=== PATIENT | female | born 1980 ===

== ENCOUNTER → 2023-07-05 | Day surgery (SDC) | payer OTHER ==
[2023-06-30 14:51] LABS: HEMATOCRIT 39.9 % (36.0-45.00); HEMOGLOBIN 13.3 g/dL (12.0-15.00); MEAN CELL VOLUME 87.5 fL (80.00-100.00); MEAN CORPUSCULAR HEMOGLOBIN 29.1 pg (27.00-32.0); MEAN CORPUSCULAR HGB CONC 33.3 g/dl (32.0-36.0); PLATELET COUNT 317 K/uL (150-450); RED BLOOD COUNT 4.55 M/uL (4.00-6.00); RED CELL DISTRIBUTION WIDTH 15.2 % (11.5-14.5)
[2023-06-30 15:04] LABS: URINE APPEARANCE Clear; URINE BILIRRUBIN Negative (NEGATIVE); URINE BLOOD Large; URINE COLOR Yellow; URINE GLUCOSE Negative (NEGATIVE); URINE LEUKOCYTE Negative; URINE NITRATE Negative; URINE PROTEIN Trace (NEGATIVE); URINE UROBILINOGEN 0.2 E.U./dl
[2023-06-30 15:07] LABS: URINE BACTERIA 522.8 uL (0.0-1933); URINE EPITHELIAL CELLS 30.2 uL (0.0-38.8); URINE RBC 111.6 uL (0.0-20.8); URINE WBC 4.9 uL (0.0-23.2)
[2023-06-30 15:23] LABS: ALBUMIN 3.5 gm/dL (3.4-5.0); ALKALINE PHOSPHATASE 79 U/L (50-136); ALT/SGPT 28 U/L (12-78); ANION GAP 6 (10.0-20.0); AST/SGOT 16 U/L (15-37); BILIRUBIN TOTAL 0.39 mg/dL (0.3-1.2); BLOOD UREA NITROGEN 11 mg/dL (7-18); BUN CREA RATIO 17 (7.0-25.0); CALCIUM 8.6 mg/dL (8.5-10.1); CARBON DIOXIDE 32 mEq/L (21-32); CHLORIDE 106 mmol/L (98-107); CREATININE SERUM 0.66 mg/dL (0.55-1.02); GFR 97.29; GLOBULINA 3.9 G/DL (2.4-3.5); GLUCOSE FASTING 86 mg/dL (65-100); OSMOLALITY SERUM 278 MOSM/KG (275-295); POTASSIUM 3.88 mEq/L (3.5-5.1); SODIUM 140 mmol/L (136-145); TOTAL PROTEIN 7.4 gm/dL (6.4-8.2)
[2023-06-30 15:37] LABS: INR 0.96; PROTHROMBIN TIME 10.1 SECONDS (9.0-11.5)
[2023-06-30 15:51] LABS: HCG QUANTITATIVE < 1 mUI/mL (1-3)
[~2023-07-05] VITALS: Ht 160 cm; Wt 97.1 kg
[~2023-07-05] MED LIST: FOLIC PO; IRON PO; ZESTRIL5 MG PO
== END | disposition home or self-care (01) ==
LOC: ADM 06-30 12:00 → CIR.AMB 07:00
PROVIDERS: ATTEND Obstetrics & Gynecology Obstetrics
DX: N93.8 Other specified abnormal uterine and vaginal bleeding (principal); N88.8 Other specified noninflammatory disorders of cervix uteri; Z20.822 Contact with and (suspected) exposure to COVID-19

== ENCOUNTER 2025-01-19 08:00 | Outpatient (CLI) | payer OTHER ==
[~2025-01-19] VITALS: Ht 160 cm; Wt 93.9 kg
[2025-01-19 11:16] VITALS: BP 150/89
[2025-01-19 11:21] LABS: HEMATOCRIT 37.3 % (36.0-45.00); HEMOGLOBIN 12.1 g/dL (12.0-15.00); MEAN CORPUSCULAR HEMOGLOBIN 27.3 pg (27.00-32.0); MEAN CORPUSCULAR HGB CONC 32.6 g/dl (32.0-36.0); PLATELET COUNT 296 K/uL (150-450); RED BLOOD COUNT 4.44 M/uL (4.00-6.00)
[2025-01-19 11:24] LABS: RED CELL DISTRIBUTION WIDTH 21.2 % (11.5-14.5)
[2025-01-19 11:31] LABS: URINE APPEARANCE Clear; URINE BILIRRUBIN Negative (NEGATIVE); URINE BLOOD Negative; URINE COLOR Yellow; URINE GLUCOSE Negative (NEGATIVE); URINE KETONE Trace (NEGATIVE); URINE LEUKOCYTE Negative; URINE NITRATE Negative; URINE PROTEIN Trace (NEGATIVE)
[2025-01-19 11:32] LABS: URINE BACTERIA 605.7 uL (0.0-1933); URINE EPITHELIAL CELLS 27.3 uL (0.0-38.8); URINE RBC 2.9 uL (0.0-20.8)
[2025-01-19 11:42] LABS: URINE CAST 0.73 uL (0.0-1.40)
[2025-01-19 12:01] LABS: ALBUMIN 3.5 gm/dL (3.4-5.0); BILIRUBIN TOTAL 0.53 mg/dL (0.3-1.2); CALCIUM 9.1 mg/dL (8.5-10.1); CREATININE SERUM 0.59 mg/dL (0.55-1.02); GFR 110.22; GLOBULINA 3.9 G/DL (2.4-3.5); POTASSIUM 4.18 mEq/L (3.5-5.1); TOTAL PROTEIN 7.4 gm/dL (6.4-8.2)
[2025-01-19 15:13] LABS: INR 0.97; PROTHROMBIN TIME 10.6 SECONDS (9.0-11.5)
== END 2025-01-19 08:01 | disposition home or self-care (01) ==
LOC: RAD 08:00 → OB/GYN 01-26 09:50 → EDSTATUS 01-26 12:30
PROVIDERS: ATTEND Obstetrics & Gynecology Obstetrics
DX: N93.9 Abnormal uterine and vaginal bleeding, unspecified (principal)

== ENCOUNTER 2025-02-20 07:30 | Inpatient (IN) | payer OTHER ==
[~2025-02-20] VITALS: Ht 175.3 cm; Wt 98.0 kg
[2025-02-20 08:20] VITALS: BP 140/87
[2025-02-20 08:37] LABS: BASO % 0.8 % (0.1-1.2); EOS # 0.25 (0.04-0.54); EOS % 3.3 % (0.7-7.0); HEMATOCRIT 35.6 % (34.1-44.9); HEMOGLOBIN 11.3 g/dL (11.2-15.7); LYMPH # 1.49 (1.18-3.74); LYMPH % 19.7 % (19.3-53.1); MONO # 0.57 (0.24-0.82); MONO % 7.5 % (4.7-12.5); NEUT # 5.17 (1.56-6.13); NEUT % 68.3 % (34.0-71.1); PLATELET COUNT 308 K/uL (163-369); RED BLOOD COUNT 4.04 M/uL (3.93-5.22); RED CELL DISTRIBUTION WIDTH 16.5 % (11.6-14.4)
[2025-02-20 08:47] LABS: URINE APPEARANCE Clear; URINE BILIRRUBIN Negative (NEGATIVE); URINE BLOOD Negative; URINE COLOR Yellow; URINE GLUCOSE Negative (NEGATIVE); URINE KETONE Negative (NEGATIVE); URINE LEUKOCYTE Negative; URINE NITRATE Negative; URINE PROTEIN Negative (NEGATIVE)
[2025-02-20 08:54] LABS: URINE BACTERIA 406.2 uL (0.0-1933); URINE EPITHELIAL CELLS 11.5 uL (0.0-38.8); URINE WBC 3.6 uL (0.0-23.2)
[2025-02-20 09:31] LABS: INR 0.96; PARTIAL THROMBOPLASTIN TIME 27.1 SECONDS (22.0-34.0); PROTHROMBIN TIME 10.5 SECONDS (9.0-11.5)
[2025-02-20 09:51] LABS: URINE CAST 0.73 uL (0.0-1.40); URINE RBC 1.4 uL (0.0-20.8)
[2025-02-20 12:43] LABS: ALBUMIN 3.3 gm/dL (3.4-5.0); ALKALINE PHOSPHATASE 78 U/L (50-136); ALT/SGPT 19 U/L (12-78); ANION GAP 11 (10.0-20.0); AST/SGOT 13 U/L (15-37); BLOOD UREA NITROGEN 9 mg/dL (7-18); BUN CREA RATIO 15 (7.0-25.0); CALCIUM 8.2 mg/dL (8.5-10.1); CARBON DIOXIDE 30 mEq/L (21-32); CHLORIDE 106 mmol/L (98-107); GFR 107.62; GLOBULINA 3.7 G/DL (2.4-3.5); GLUCOSE FASTING 91 mg/dL (65-100); OSMOLALITY SERUM 283 MOSM/KG (275-295); POTASSIUM 3.67 mEq/L (3.5-5.1); SODIUM 143 mmol/L (136-145)
[2025-02-20 12:44] LABS: HCG QUANTITATIVE < 1 mUI/mL (1-3)
[2025-03-12] MEDS ORDERED: CEFOXITIN SODIUM 2,000 MG VIAL IV ONE (14:45)
[2025-03-12] MEDS ORDERED: POVIDONE-IODINE 118 ML BOTT TOP ONE (17:30)
[2025-03-12] MEDS ORDERED: MORPHINE SULFATE 4 MG/ML VIAL IV SCH (21:00)
[2025-03-12] MEDS ORDERED: MORPHINE SULFATE 4 MG/ML VIAL IV ONE ×2 (21:05→23:00)
[2025-03-13 02:10] VITALS: BP 127/83
[2025-03-13 06:50] LABS: BASO % 0.2 % (0.1-1.2); HEMATOCRIT 35.6 % (34.1-44.9); HEMOGLOBIN 11.3 g/dL (11.2-15.7); LYMPH # 0.86 (1.18-3.74); LYMPH % 5.3 % (19.3-53.1); MEAN CORPUSCULAR HEMOGLOBIN 28.1 pg (25.6-32.2); MONO # 0.67 (0.24-0.82); MONO % 4.1 % (4.7-12.5); NEUT # 14.52 (1.56-6.13); PLATELET COUNT 343 K/uL (163-369); RED BLOOD COUNT 4.02 M/uL (3.93-5.22); RED CELL DISTRIBUTION WIDTH 14.4 % (11.6-14.4)
[2025-03-13] MEDS ORDERED: OxyCODONE HCL 5 MG TABLET (ROXICODONE) PO SCH (09:00)
[2025-03-13 09:06] VITALS: BP 138/84
[2025-03-13 14:03] VITALS: BP 137/87
[2025-03-13 15:39] VITALS: BP 116/80
[2025-03-14] VITALS: BP 141/86
[2025-03-14 08:23] VITALS: BP 110/78
[2025-03-14 16:23] VITALS: BP 140/80
[2025-03-14] MEDS ORDERED: SIMETHICONE 125 MG CAPSULE PO SCH (18:57)
[2025-03-15 01:23] VITALS: BP 125/77
[2025-03-15 08:00] VITALS: BP 111/77
== END 2025-03-15 16:33 | disposition home or self-care (01) | DRG 743 ==
LOC: SURH 02-26 07:30 → O/R 03-12 14:11 → OB/GYN 03-12 20:56
PROVIDERS: ADMIT Obstetrics & Gynecology Obstetrics; ATTEND Obstetrics & Gynecology Obstetrics
PROC: 0UT70ZZ Resection of Bilateral Fallopian Tubes, Open Approach (ICD-10-PCS; 2025-03-12)
PROC: 0UT90ZZ Resection of Uterus, Open Approach (ICD-10-PCS; principal; 2025-03-12 17:00)
DX: D25.1 Intramural leiomyoma of uterus (principal); D25.2 Subserosal leiomyoma of uterus; N72 Inflammatory disease of cervix uteri